=== PATIENT | male | born 1940 | race Asian ===

== ENCOUNTER → 2017-12-06 | Outpatient (CLI) | payer OTHER ==
[2017-12-06 10:52] LABS: CHOLESTEROL/HDL RATIO 3.1
[2017-12-06 10:54] LABS: FREE T4 1.2 ng/dL (0.76-1.46); FREE THYROXINE INDEX 2.6 ug/dL (1.4-4.5); T4(THYROXINE) 7.1 ug/dL (4.7-13.3)
[2017-12-06 10:57] LABS: T3 TOTAL 0.97 ng/mL
== END | disposition home or self-care (01) ==
LOC: LB 10:02
PROVIDERS: Family Medicine
DX: I10 Essential (primary) hypertension (principal)
CPT/HCPCS: 84439